=== PATIENT | female | born 1930 | race Caucasian/White ===

== ENCOUNTER 2017-01-03 15:52 | Emergency (ER) | payer OTHER ==
[2017-01-03 16:07] VITALS: BP 115/60; PULSE 74; TEMP 97.4; BMI 29.2
--- NOTE | 2017-01-03 17:21 | PDOC ---
History of Present Illness <Jayda Montano - Last Filed: 01/03/17 19:31> - General History Source: Patient Exam Limitations: No Limitations - History of Present Illness Travel History: No Initial Comments: 01/03/17 17:19 86-year-old female presents to the ED for evaluation of questionable vaginal versus rectal bleeding that was noted this morning when home health aid changed her. As per home health aid patient had bright red blood with small clots in the diaper but unsure of where it's coming from so brought patient to the ER for further evaluation. Home health aid denies any recent infection, recent change in medications, history of vaginal bleeding, recent UTI, or on blood thinners. Timing/Duration: reports: intermittent Quality: reports: mild Aggravating Factors: improves with: None Alleviating Factors: improves with: None <Buffy Mayorga - Last Filed: 01/06/17 21:41> - General Chief Complaint: Hematuria Stated Complaint: VAGINAL BLEED Time Seen by Provider: 01/03/17 16:09 Past History <Jayda Montano - Last Filed: 01/03/17 19:31> - Past Medical History Dementia: Yes (alzheimers) Diabetes: Yes HTN: Yes Hypercholesterolemia: Yes Thyroid Disease: Yes - Surgical History Orthopedic Surgery: Yes (Knee Surgery) - Psycho/Social/Smoking Cessation Hx Anxiety: No Suicidal Ideation: No Smoking History: Unknown if ever smoked Have you smoked in the past 12 months: No Information on smoking cessation initiated: No 'Breaking Loose' booklet given: 06/02/15 Hx Alcohol Use: No Drug/Substance Use Hx: No Substance Use Type: None Patient Lives Alone: No Lives with/in: home health aid <Buffy Mayorga - Last Filed: 01/06/17 21:41> - Past Medical History Allergies/Adverse Reactions: Allergies Allergy/AdvReac Type Severity Reaction Status Date / Time No Known Allergies Allergy Verified 12/03/15 07:59 Home Medications: Ambulatory Orders Aspirin [ASA -] 81 mg PO DAILY 06/01/15 Atorvastatin Ca [Lipitor] 80 mg PO HS 06/01/15 Carbidopa/Levodopa [Carbidopa-Levo 10-100 Tab] 50 mcg PO BID 06/01/15 Clopidogrel Bisulfate [Plavix -] 75 mg PO DAILY 06/01/15 Cyanocobalamin (Vitamin B-12) [Vitamin B-12] 500 mcg PO DAILY 06/01/15 Docusate Sodium [Colace -] 100 mg PO BID 06/01/15 Entacapone [Comtan] 200 mg PO BID 06/01/15 Ergocalciferol (Vitamin D2) [Vitamin D2] 50,000 unit PO MONTHLY 06/01/15 Levothyroxine [Synthroid -] 50 mcg PO DAILY 06/01/15 Metoprolol Succinate [Toprol XL -] 25 mg PO DAILY 06/01/15 Glipizide 10 mg PO DAILY 05/18/16 Lasix - 40 mg PO DAILY 05/18/16 Collagenase Clostridium Hist. [Santyl] 1 applic TP DAILY #90 applic 05/21/16 Mupirocin Cream [Bactroban 2% Cream -] 1 applic TP DAILY #30 tube MDD 1 Nitrofurantoin Macrocrystal [Macrodantin -] 100 mg PO BID #14 capsule 01/04/17 Review of Systems - Review of Systems Able to Perform ROS?: Yes Constitutional: No: Symptoms Reported Respiratory: No: Symptoms reported ABD/GI: No: Poor Appetite, Poor Fluid Intake, Vomiting : No: Symptoms Reported Musculoskeletal: No: Symptoms Reported Integumentary: No: Symptoms Reported Neurological: No: Symptoms reported Endocrine: No: Symptoms Reported Hematologic/Lymphatic: No: Symptoms Reported <Buffy Mayorga - Last Filed: 01/06/17 21:41> *Physical Exam - Vital Signs Last Vital Signs Temp Pulse Resp BP Pulse Ox 97.4 F L 74 20 115/60 97 01/03/17 16:05 01/03/17 16:05 01/03/17 16:05 01/03/17 16:05 01/03/17 16:05 <Jayda Montano - Last Filed: 01/03/17 19:31> - Vital Signs Last Vital Signs Temp Pulse Resp BP Pulse Ox 97.4 F L 74 20 115/60 97 01/03/17 16:05 01/03/17 16:05 01/03/17 16:05 01/03/17 16:05 01/03/17 16:05 - Physical Exam General Appearance: Yes: Nourished, Appropriately Dressed. No: Apparent Distress HEENT: positive: EOMI, GLENDA. negative: Pale Conjunctivae Neck: positive: Supple Respiratory/Chest: positive: Lungs Clear, Normal Breath Sounds. negative: Respiratory Distress, Accessory Muscle Use Cardiovascular: positive: Regular Rhythm, Regular Rate. negative: Murmur Female Pelvic Exam: positive: normal external exam, vaginal bleeding (pinkish red no clots) Gastrointestinal/Abdominal: positive: Normal Bowel Sounds, Soft, Distended. negative: Tenderness, Mass Rectal Exam: positive: heme negative stool (light brown stool) Integumentary: positive: Warm, Moist Neurologic: positive: Alert <Buffy Mayorga - Last Filed: 01/06/17 21:41> Heart Score/ECG Review - ECG Impressions Comment:: 01/03/17 19:31 NSR @80bpm Left anterior fascicular block Moderate voltage criteria for LVH, may be normal variant Abnormal ECG <Jayad Montano - Last Filed: 01/03/17 19:31> ED Treatment Course - LABORATORY CBC & Chemistry Diagram: 01/03/17 17:30 01/03/17 17:30 - ADDITIONAL ORDERS Additional order review: Laboratory Results 01/03/17 01/03/17 01/03/17 17:49 17:30 17:30 Sodium Cancelled Potassium Cancelled Chloride Cancelled Carbon Dioxide Cancelled Anion Gap Cancelled BUN Cancelled Creatinine Cancelled Creat Clearance w eGFR Cancelled Random Glucose Cancelled Calcium Cancelled Total Bilirubin Cancelled AST Cancelled ALT Cancelled Alkaline Phosphatase Cancelled Total Protein Cancelled Albumin Cancelled Urine Color Ltyellow Urine Appearance Clear Urine pH 5.0 Ur Specific [place] 1.010 Urine Protein Negative Urine Glucose (UA) Negative Urine Ketones Negative Urine Blood Negative Urine Nitrite Positive Urine Bilirubin Negative Urine Urobilinogen Negative Ur Leukocyte Esterase Trace H D Urine RBC <1 Urine WBC 14 Urine Bacteria Rare Urine Mucus Rare Blood Type Cancelled Antibody Screen Cancelled Spec Expiration Date Cancelled 01/03/17 17:30 RBC 4.63 MCV 91.9 MCHC 32.6 RDW 15.4 MPV 9.5 D Neutrophils % 56.8 D Lymphocytes % 32.1 D Monocytes % 7.3 Eosinophils % 2.6 Basophils % 1.2 <Jayda Montano - Last Filed: 01/03/17 19:31> - LABORATORY CBC & Chemistry Diagram: 01/03/17 19:05 01/03/17 19:05 - RADIOLOGY Radiology Studies Ordered: Category Date Time Status PELVIC / BLADDER US [US] Stat Ultrasound 01/03/17 16:52 Ordered <Buffy Mayorga - Last Filed: 01/06/17 21:41> Medical Decision Making - Medical Decision Making 01/03/17 17:20 Patient brought in for evaluation of bleeding from her vagina versus rectum. Patient on exam had no rectal bleeding but had noted pinkish fluid during incontinent episode while turning patient. Pinkish fluid also noted in vaginal canal. Patient will fully catheter placed to observe for hematuria versus vaginal bleeding. Patient also ordered for labs and ultrasound. <Buffy Mayorga - Last Filed: 01/06/17 21:41> *DC/Admit/Observation/Transfer <CongryanJayda - Last Filed: 01/03/17 19:31> <[place] - Last Filed: 01/06/17 21:41> Diagnosis at time of Disposition: Vaginal bleeding, UTI (urinary tract infection) - Discharge Dispostion Disposition: HOME Condition at time of disposition: Stable - Prescriptions Prescriptions: Nitrofurantoin Macrocrystal [Macrodantin -] 100 mg PO BID #14 capsule - Referrals Referrals: Caleb Barger MD [Staff Physician] - Enoch Schroeder MD [Primary Care Provider] - - Patient Instructions Printed Discharge Instructions: DI for Urinary Tract Infection (UTI), DI for Vaginal Bleeding Additional Instructions: As discussed, you must follow-up with your ring making machine operator within the next 24-48 hours. If you experience severe vaginal bleeding (more than one soaked pad an hour), dizziness, lightheadedness, nausea, vomiting, rectal bleeding, or any new or worsening symptoms, please return to the ER immediately.
[2017-01-03 18:08] LABS: BASOPHIL 1.2 % (0-2.0); EOSINOPHIL 2.6 % (0-4.5); MCHC 32.6 g/dl (32.0-36.0); MEAN CELL VOLUME 91.9 fl (80-96); MEAN PLT VOLUME 9.5 fl (7.5-11.1); NEUTROPHILS 56.8 % (42.8-82.8); RDW 15.4 % (11.6-15.6)
[2017-01-03 18:15] LABS: WHITE BLOOD COUNT 11.5 K/mm3 (4.0-10.0)
[2017-01-03 18:37] LABS: URINE APPEARANCE CLEAR; URINE BILIRUBIN NEGATIVE (NEGATIVE); URINE BLOOD NEGATIVE (NEGATIVE); URINE COLOR LTYELLOW; URINE GLUCOSE (UA) NEGATIVE (NEGATIVE); URINE KETONE NEGATIVE (NEGATIVE); URINE NITRITE POSITIVE (NEGATIVE); URINE PROTEIN NEGATIVE (NEGATIVE); URINE UROBILINOGEN NEGATIVE E.U./dl (0.2-1.0)
[2017-01-03 18:41] LABS: URINE LEUK ESTERASE TRACE (NEGATIVE)
[2017-01-03 18:53] LABS: URINE BACTERIA RARE /hpf (NONE SEEN); URINE MUCUS RARE; URINE RBC <1 /hpf (0-3); URINE WBC 14 /hpf (3-5)
[2017-01-03 19:36] LABS: BASOPHIL 0.8 % (0-2.0); EOSINOPHIL 2.9 % (0-4.5); MCH 29.8 pg (25.7-33.7); MCHC 32.6 g/dl (32.0-36.0); MEAN CELL VOLUME 91.5 fl (80-96); NEUTROPHILS 59.8 % (42.8-82.8); PLATELET COUNT 199 K/MM3 (134-434); RDW 15.2 % (11.6-15.6)
--- NOTE | 2017-01-03 19:49 | PDOC ---
[id number] 97 01/03/17 16:05 01/03/17 16:05 01/03/17 16:05 01/03/17 16:05 01/03/17 16:05 - Physical Exam Comments: 01/03/17 19:49 Sign-out received from outgoing ER provider Mukesh. Pt interviewed and examined. Ancillary studies reviewed. Bladder u/s results: Visualization is severely limited due to lack of sufficient urinary bladder distention. At time of exam, urinary bladder contained approximately 12 mL of fluid. No gross mass lesion is identified within the urinary bladder lumen. The uterus and adnexa cannot be adequately visualized. There is no obvious free intraperitoneal fluid within the lower pelvis. Read by: Mehrdad Menjivar MD. Labs: UA positive for UTI. Macrobid rx sent to pharm. 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 Patient and home health aide verbalized understanding and agree to plan. ED Treatment Course - LABORATORY CBC & Chemistry Diagram: 01/03/17 19:05 01/03/17 19:05 - ADDITIONAL ORDERS Additional order review: Laboratory Results 01/03/17 01/03/17 01/03/17 17:49 17:30 17:30 Sodium Cancelled Potassium Cancelled Chloride Cancelled Carbon Dioxide Cancelled Anion Gap Cancelled BUN Cancelled Creatinine Cancelled Creat Clearance w eGFR Cancelled Random Glucose Cancelled Calcium Cancelled Total Bilirubin Cancelled AST Cancelled ALT Cancelled Alkaline Phosphatase Cancelled Total Protein Cancelled Albumin Cancelled Urine Color Ltyellow Urine Appearance Clear Urine pH 5.0 Ur Specific [place] 1.010 Urine Protein Negative Urine Glucose (UA) Negative Urine Ketones Negative Urine Blood Negative Urine Nitrite Positive Urine Bilirubin Negative Urine Urobilinogen Negative Ur Leukocyte Esterase Trace H D Urine RBC <1 Urine WBC 14 Urine Bacteria Rare Urine Mucus Rare Blood Type Cancelled Antibody Screen Cancelled Spec Expiration Date Cancelled 01/03/17 01/03/17 19:05 17:30 RBC 4.47 4.63 MCV 91.5 91.9 MCHC 32.6 32.6 RDW 15.2 15.4 MPV 9.0 9.5 D Neutrophils % 59.8 56.8 D Lymphocytes % 29.7 32.1 D Monocytes % 6.8 7.3 Eosinophils % 2.9 2.6 Basophils % 0.8 1.2 *DC/Admit/Observation/Transfer Diagnosis at time of Disposition: Vaginal bleeding UTI (urinary tract infection) Qualifiers: Urinary tract infection type: site unspecified Hematuria presence: without hematuria Qualified Code(s): N39.0 - Urinary tract infection, site not specified - Discharge Dispostion Disposition: HOME Condition at time of disposition: Stable Admit: No - Prescriptions Prescriptions: Nitrofurantoin Macrocrystal [Macrodantin -] 100 mg PO BID #14 capsule - Referrals Referrals: Enoch Schroeder MD [Primary Care Provider] - Caleb Barger MD [Staff Physician] - - Patient Instructions Printed Discharge Instructions: DI for Vaginal Bleeding, DI for Urinary Tract Infection (UTI) Additional Instructions: As discussed, you must follow-up with your consolidator within the next 24-48 hours. If you experience severe vaginal bleeding (more than one soaked pad an hour), dizziness, lightheadedness, nausea, vomiting, rectal bleeding, or any new or worsening symptoms, please return to the ER immediately.
[2017-01-03 20:10] LABS: ALBUMIN 3.3 g/dl (3.4-5.0); CALCIUM 9.4 mg/dL (8.5-10.1); CREATININE 1.3 mg/dL (0.55-1.02)
[2017-01-03 20:11] LABS: BILIRUBIN,TOTAL 0.5 mg/dL (0.2-1.0); TOT PROT 7.3 g/dl (6.4-8.2)
[2017-01-03 20:18] LABS: INR 1.04 (0.82-1.09); PROTHROMBIN TIME (PATIENT) 11.4 SEC (9.98-11.88)
--- NOTE | 2017-01-04 09:40 | EKG ---
Test Reason : Blood Pressure : / mmHG Vent. Rate : 080 BPM Atrial Rate : 080 BPM P-R Int : 198 ms QRS Dur : 106 ms QT Int : 366 ms P-R-T Axes : 044 -54 058 degrees QTc Int : 422 ms NORMAL SINUS RHYTHM LEFT ANTERIOR FASCICULAR BLOCK MODERATE VOLTAGE CRITERIA FOR LVH, MAY BE NORMAL VARIANT ABNORMAL ECG WHEN COMPARED WITH ECG OF 03-DEC-2015 08:22, NO SIGNIFICANT CHANGE WAS FOUND Confirmed by RACHEAL AMARO MD ([id number]) on 01/04/2017 9:40:12 AM Referred By: Confirmed By:RACHEAL AMARO MD
== END 2017-01-03 20:12 | disposition home or self-care (01) ==
LOC: JER 15:52
DX: N93.8 Other specified abnormal uterine and vaginal bleeding (principal); N39.0 Urinary tract infection, site not specified; B96.89 Other specified bacterial agents as the cause of diseases classified elsewhere; I10 Essential (primary) hypertension; E03.9 Hypothyroidism, unspecified; E78.00 Pure hypercholesterolemia, unspecified; G30.0 Alzheimer's disease with early onset; F02.80 Dementia in other diseases classified elsewhere, unspecified severity, without behavioral disturbance, psychotic disturbance, mood disturbance, and anxiety
CPT/HCPCS: 36415; 76856-TC; 80053; 81003; 81015; 85025; 85610; 86850; 86900; 86901; 87086; 87186; 93005; 93010; 99282-25